=== PATIENT | female | born 2000 | race Two or more races ===

== ENCOUNTER 2025-06-05 15:35 | Emergency (ER) | payer OTHER ==
[~2025-06-05] VITALS: Ht 160 cm; Wt 58.5 kg
[~2025-06-05 15:35] MED LIST: SINGULAIR10 MG PO
[2025-06-05 17:39] LABS: BASO % 0.2 % (0.1-1.2); EOS # 0.21 (0.04-0.54); EOS % 2.2 % (0.7-7.0); LYMPH # 1.45 (1.18-3.74); LYMPH % 15.1 % (19.3-53.1); MEAN PLATELET VOLUME 9.90 fl (9.4-12.4); MONO # 0.68 (0.24-0.82); MONO % 7.1 % (4.7-12.5); NEUT # 7.24 (1.56-6.13); NEUT % 75.2 % (34.0-71.1); RED CELL DISTRIBUTION WIDTH 11.9 % (11.6-14.4)
[2025-06-05 18:34] LABS: COVID-19 AG NEGATIVE (NEGATIVE)
[2025-06-05] MEDS ORDERED: GILTUSS COUGH-118 M1 PO (19:48)
[2025-06-05] MEDS ORDERED: ACETAMINOPHEN500 M1 PO (19:48)
[2025-06-05] MEDS ORDERED: ZITHROMAX TRI-500 MG PO (19:48)
== END 2025-06-05 19:55 | disposition home or self-care (01) ==
LOC: ER 15:35
PROVIDERS: Preventive Medicine Public Health & General Preventive Medicine
DX: J06.9 Acute upper respiratory infection, unspecified (principal)